=== PATIENT | female | born 1985 | race Hispanic/Latino ===

== ENCOUNTER 2017-07-23 17:01 | Emergency (ER) | payer MEDICAID ==
[2017-07-23 17:23] VITALS: RESP 18
[2017-07-23 18:50] LABS: BASO % 0.2 % (0.0-2.0); EOS # 0.5 K/uL (0.0-0.7); EOS % 3.1 % (0.0-4.0); HEMOGLOBIN 11.9 g/dL (12.0-16.0); LYMPH # 3.2 K/uL (1.0-4.3); MEAN CELL VOLUME 92.5 fl (81.0-99.0); MEAN CORPUSCULAR HEMOGLOBIN 30.8 pg (27.0-31.0); MEAN CORPUSCULAR HGB CONC 33.2 g/dL (33.0-37.0); MEAN PLATELET VOLUME 8.5 fl (7.2-11.7); MONO % 6.7 % (0.0-10.0); NEUT # 9.9 K/uL (1.8-7.0); RBC 3.87 Mil/uL (3.80-5.20); RED CELL DISTRIBUTION WIDTH 12.8 % (11.5-14.5); WHITE BLOOD COUNT 14.6 K/uL (4.8-10.8)
[2017-07-23 19:10] LABS: SQUAMOUS EPITHIAL 2 /hpf (0-5); URINE BILIRUBIN NEGATIVE (NEGATIVE); URINE BLOOD SMALL (NEGATIVE); URINE CLARITY CLEAR (Clear); URINE COLOR YELLOW (YELLOW); URINE GLUCOSE (UA) NEG (Normal); URINE LEUKOCYTE ESTERASE NEG Leu/uL (Negative); URINE PROTEIN NEGATIVE (NEGATIVE); URINE UROBILINOGEN 0.2-1.0 mg/dL (0.2-1.0)
--- NOTE | 2017-07-23 19:35 | ED PDOC ---
HPI: Abdomen Time Seen by Provider: 07/23/17 17:48 Chief Complaint (Nursing): Female Genitourinary Chief Complaint (Provider): Abdominal Pain History Per: Patient History/Exam Limitations: no limitations Onset/Duration Of Symptoms: Hrs (x2) Current Symptoms Are (Timing): Still Present Location Of Pain/Discomfort: Suprapubic Associated Symptoms: Other (vaginal spotting) Additional Complaint(s): Patient complains of lower abdominal pain described as cramping, associated with mild vaginal spotting. Otherwise: (-) vomiting, (-) diarrhea, (-) fever, (- ) melena, (-) hematochezia. Has no history of prior abdominal surgery. Patient notes she is 12 weeks and confirms she is receiving pre- care. Of note, patient had an US 2 weeks ago with (+) IUP. (-) urinary symptoms or trauma. PCP: Linnea Abnormal Vaginal Bleeding: Yes : 1 Para: 0 Past Medical History Reviewed: Historical Data, Nursing Documentation, Vital Signs Vital Signs: Last Vital Signs Temp 98 F 07/23/17 21:56 Pulse 71 07/23/17 21:56 Resp 18 07/23/17 21:56 BP 118/76 07/23/17 21:56 Pulse Ox 100 07/23/17 21:56 - Medical History PMH: Asthma - Family History Family History: States: Unknown Family Hx - Allergies Allergies/Adverse Reactions: Allergies Allergy/AdvReac Type Severity Reaction Status Date / Time No Known Allergies Allergy Verified 07/23/17 17:21 Review of Systems ROS Statement: Except As Marked, All Systems Reviewed And Found Negative Constitutional: Negative for: Fever Gastrointestinal: Positive for: Abdominal Pain (lower abdominal cramping). Negative for: Nausea, Vomiting, Diarrhea Genitourinary Female: Positive for: Vaginal Bleeding (mild vaginal spotting) Physical Exam - Reviewed Nursing Documentation Reviewed: Yes Vital Signs Reviewed: Yes - Physical Exam Comments: GENERAL APPEARANCE: Patient is awake, alert, oriented x 3, in no acute distress SKIN: Warm, dry; (-) cyanosis. EYES: (-) conjunctival pallor, (-) scleral icterus. ENMT: Mucous membranes moist. NECK: (-) tenderness, (-) stiffness, (-) lymphadenopathy. CHEST AND RESPIRATORY: (-) rales, (-) rhonchi, (-) wheezes; breath sounds equal bilaterally. HEART AND CARDIOVASCULAR: (-) irregularity; (-) murmur, (-) gallop. ABDOMEN AND GI: (-) distention. Bowel sounds active; no tenderness in. (-) guarding, (-) rebound, (-) palpable masses, (-) CVA tenderness. EXTREMITIES: (-) deformity, (-) edema, (+) distal pulses. NEURO AND PSYCH: Mental status as above; (-) focal findings. - Laboratory Results Result Diagrams: 07/23/17 18:11 07/23/17 20:30 - ECG O2 Sat by Pulse Oximetry: 99 (RA) Pulse Ox Interpretation: Normal Medical Decision Making Medical Decision Makin Initial impression: threatened AB Initial plan: * T&S * BETA HCG * Labs * UDip * UA * US PELVIS Lab results reviewed. US still pending. 1999 Patient will be endorsed to Darcy Cristina PA-C pending US results, re- evaluation and disposition. Scribe Attestation: Documented by Karla Steele acting as a scribe for Irene Hill PA-C. Scribe Attestation: All medical record entries made by the Scribe were at my direction and personally dictated by me. I have reviewed the chart and agree that the record accurately reflects my personal performance of the history, physical exam, medical decision making, and the department course for this patient. I have also personally directed, reviewed, and agree with the discharge instructions and disposition. Disposition - Clinical Impression Clinical Impression: Inevitable - Patient ED Disposition Is Patient to be Admitted: Transfer of Care - Disposition Disposition Time: 20:00 Condition: STABLE Instructions: Dealing With Miscarriage Forms: [employer] (Portuguese) Patient Signed Over To: Darcy Cristina Handoff Comments: pending US results and re-eval
[2017-07-23 20:51] LABS: ALB/GLOB RATIO 1.3 (1.0-2.1); ALBUMIN 4.1 g/dL (3.5-5.0); ALT/SGPT 31 U/L (9-52); AST/SGOT 25 U/L (14-36); BLOOD UREA NITROGEN 13 mg/dl (7-17); CALCIUM 9.3 mg/dL (8.4-10.2); GFR AFRICAN-AMERICAN > 60; GFR NON-AFRICAN AMERICAN > 60
--- NOTE | 2017-07-23 21:39 | US ---
EXAM: US First Trimester, Transabdominal US , Transvaginal EXAM DATE/TIME: 07/23/2017 8:26 PM CLINICAL HISTORY: 31 years old, female; Pain; complicated by abdominal or pelvic pain; Generalized abdominal pain; First trimester; Gestational age or lmp: Lmp 04/25/2017; ; Additional info: 12 wks preg, pain, vag bleed TECHNIQUE: Real-time transabdominal and transvaginal obstetrical ultrasound of the maternal pelvis and a first trimester with image documentation. Transvaginal imaging was used for better evaluation of the fetus and adnexa. COMPARISON: No relevant prior studies available. FINDINGS: Uterus: Measures 10.6 x 5.2 x 6.3 cm. Single intrauterine gestational sac identified. This is abnormal in appearance. It has an irregular shape, and appears large in size relative to the size of the pole. It contains a pole, but no yolk sac is seen. Estimated gestational age is 6 weeks, 1 day, based on a crown rump length of 4.9 mm. There is absence of detectable heart motion and absence of flow within the pole on color imaging. Findings are highly suspicious for intrauterine demise. Cervix appears closed. Right ovary: Within normal limits in appearance, containing multiple follicles. Measures 2.7 x 2.3 x 2.2 cm. Flow seen in the right ovary on color and Doppler imaging, with no evidence of torsion. Left ovary: Measures 3.4 x 2.6 x 3.2 cm, and contains a 2 cm simple appearing cystic lesion with slightly collapsed margins, most likely an involuting corpus luteal cyst. Flow seen in the left ovary on color and Doppler imaging, with no evidence of torsion. Free fluid: None seen. IMPRESSION: 6 week, 1 day intrauterine . There is absence of detectable heart motion, highly suspicious for intrauterine demise. Followup is recommended. See above for remaining findings.
--- NOTE | 2017-07-23 21:43 | ED PDOC ---
- Laboratory Results Result Diagrams: 07/23/17 18:11 07/23/17 20:30 - ECG O2 Sat by Pulse Oximetry: 99 (RA) Medical Decision Making Medical Decision Making: US - demise Discussed with patient. Blood O (+) antibody (-) Pt has appointment with [facility] in 2 days. Pt given a copy of US report. Disposition - Clinical Impression Clinical Impression: Inevitable - POA Present On Arrival: None - Disposition Disposition: Routine/Home Disposition Time: 21:40 Condition: STABLE Instructions: Dealing With Miscarriage Forms: [facility] (Malay)
[2017-07-23 21:57] VITALS: BP 118/76; PULSE 71; TEMP 98
[2017-07-24 16:06] VITALS: O2SAT 99
== END 2017-07-23 21:58 | disposition home or self-care (01) ==
LOC: H.ER 17:01
DX: O03.9 Complete or unspecified spontaneous abortion without complication (principal); O99.511 Diseases of the respiratory system complicating pregnancy, first trimester; J45.909 Unspecified asthma, uncomplicated; Z3A.12 12 weeks gestation of pregnancy